=== PATIENT | male | born 1950 | race Caucasian/White ===

== ENCOUNTER 2018-03-26 07:19 | Outpatient (CLI) | payer MEDICARE, SELFPAY ==
[2018-03-26 07:42] LABS: HCT 42.2 % (40.0-50.0); HGB 14.9 g/dL (13.5-17.5); Mean Corp. HGB Concentration 35.3 g/dL (32.0-36.0); Mean Corpuscular Hemoglobin 29.7 pg (27.0-33.0); Mean Corpuscular Volume 84.2 fL (80-95); Mean Platelet Volume 10.6 fL (8.0-11.0); Platelet Count 260 x1000/uL (130-400); RBC 5.01 m/cumm (4.50-6.00); White Blood Cell Count 7.73 k/cumm (4.4-10.8)
[2018-03-26 08:51] LABS: ALT 37 U/L (12-78); AST 25 U/L (15-37); Albumin 3.8 g/dL (3.4-5.0); Alkaline Phosphatase 64 U/L (46-116); Anion Gap 5.8 mmol/L (3-11); BUN 23 mg/dL (7-18); Bilirubin, Total 0.8 mg/dL (0.2-1.0); CO2 30.2 mmol/L (21.0-32.0); CREATININE 1.17 mg/dL (0.70-1.30); Calcium 9.1 mg/dL (8.5-10.1); Chloride 103 mmol/L (98-107); Cholesterol 286 mg/dL (50-200); Glucose 95 mg/dL (70-100); HDL Cholesterol 55 mg/dL (40-60); LDL CHOLESTEROL 197 mg/dL (<100); Potassium 4.6 mmol/L (3.5-5.1); Sodium 139 mmol/L (136-145); Total Protein 7.1 g/dL (6.4-8.2); Triglyceride 159 mg/dL (30-150)
== END 2018-03-26 07:39 ==
PROVIDERS: PCP Nurse Practitioner; Visit Provider Nurse Practitioner
DX: G43.909 Migraine, unspecified, not intractable, without status migrainosus (principal); E78.2 Mixed hyperlipidemia
CPT/HCPCS: 36415; 80053; 80061; 83721; 85027

== ENCOUNTER 2019-12-31 01:14 | Outpatient (CLI) | payer MEDICARE, BC, SELFPAY ==
[2019-12-31 07:56] LABS: HCT 41.1 % (40.0-50.0); HGB 14.4 g/dL (13.5-17.5); Mean Corpuscular Hemoglobin 29.1 pg (27.0-33.0); Mean Corpuscular Volume 83.2 fL (80-95); Mean Platelet Volume 10.4 fL (8.0-11.0); Platelet Count 302 x1000/uL (130-400); RBC 4.94 m/cumm (4.50-6.00); RBC Distribution Width 14.5 % (11.8-14.1); White Blood Cell Count 7.16 k/cumm (4.4-10.8)
[2019-12-31 09:02] LABS: ALT 34 U/L (16-63); AST 21 U/L (15-37); Albumin 3.7 g/dL (3.4-5.0); Alkaline Phosphatase 58 U/L (46-116); Anion Gap 7.2 mmol/L (3-11); BUN 18 mg/dL (7-18); Bilirubin, Total 1.1 mg/dL (0.2-1.0); CO2 26.8 mmol/L (21.0-32.0); CREATININE 1.01 mg/dL (0.70-1.30); Calcium 9.1 mg/dL (8.5-10.1); Calculated LDL 172 mg/dL (<100); Chloride 105 mmol/L (98-107); Cholesterol 248 mg/dL (<200); Glucose 94 mg/dL (74-106); HDL Cholesterol 48 mg/dL (40-60); Potassium 4.4 mmol/L (3.5-5.1); Sodium 139 mmol/L (136-145); Triglyceride 140 mg/dL (<150)
[2020-01-01 09:11] LABS: PSA, Screening 5.6 ng/mL (0.0-4.5)
== END 2019-12-31 01:34 ==
PROVIDERS: PCP Nurse Practitioner; Visit Provider Nurse Practitioner
DX: E78.2 Mixed hyperlipidemia (principal); R39.11 Hesitancy of micturition; R39.15 Urgency of urination; Z51.81 Encounter for therapeutic drug level monitoring; Z79.01 Long term (current) use of anticoagulants; N52.9 Male erectile dysfunction, unspecified; Z12.5 Encounter for screening for malignant neoplasm of prostate
CPT/HCPCS: 36415; 80053; 80061; 84153; 85027

== ENCOUNTER → 2020-03-02 14:33 | Outpatient (BNVA) | payer MEDICARE, BC, SELFPAY | PROVIDERS: PCP Nurse Practitioner; Referring Provider Nurse Practitioner; Visit Provider Urology | DX: R39.12 Poor urinary stream (principal); R39.15 Urgency of urination; R39.11 Hesitancy of micturition; R97.20 Elevated prostate specific antigen [PSA]; Z80.42 Family history of malignant neoplasm of prostate | CPT/HCPCS: 99203 ==

== ENCOUNTER 2020-03-02 16:25 | Outpatient (REF) | payer MEDICARE, BC, SELFPAY ==
[2020-03-05 11:04] LABS: Free PSA/PSA Ratio 0.13 ratio
== END 2020-03-02 16:45 ==
LOC: LBN 16:25
PROVIDERS: PCP Nurse Practitioner; Visit Provider Urology
DX: R97.20 Elevated prostate specific antigen [PSA] (principal)
CPT/HCPCS: 84154

== ENCOUNTER → 2020-05-21 13:03 | Outpatient (BNVA) | payer MEDICARE, BC, SELFPAY | PROVIDERS: PCP Nurse Practitioner; Referring Provider Nurse Practitioner; Visit Provider Urology | DX: R97.20 Elevated prostate specific antigen [PSA] (principal); N52.9 Male erectile dysfunction, unspecified; R39.12 Poor urinary stream | CPT/HCPCS: 99213 ==

== ENCOUNTER 2020-06-04 09:19 | Outpatient (CLI) | payer MEDICARE, BC, SELFPAY ==
[2020-06-07 17:08] LABS: COVID-19 RT-PCR Result NEGATIVE (Negative)
== END 2020-06-04 09:39 ==
PROVIDERS: PCP Nurse Practitioner; Visit Provider Nurse Practitioner
DX: Z20.828 Contact with and (suspected) exposure to other viral communicable diseases (principal)
CPT/HCPCS: U0003

== ENCOUNTER 2020-10-06 03:28 | Outpatient (CLI) | payer MEDICARE, BC, SELFPAY ==
[2020-10-06 13:21] LABS: ALT 38 U/L (16-63); AST 17 U/L (15-37); Albumin 3.7 g/dL (3.4-5.0); Alkaline Phosphatase 53 U/L (46-116); Anion Gap 7.1 mmol/L (3-11); BUN 24 mg/dL (7-18); CO2 29.9 mmol/L (21.0-32.0); Calcium 9.3 mg/dL (8.5-10.1); Calculated LDL 151 mg/dL (<100); Chloride 105 mmol/L (98-107); Cholesterol 249 mg/dL (<200); Glucose 116 mg/dL (74-106); HDL Cholesterol 62 mg/dL (40-60); Potassium 4.1 mmol/L (3.5-5.1); Sodium 142 mmol/L (136-145); Total Protein 7.7 g/dL (6.4-8.2); Triglyceride 181 mg/dL (<150)
[2020-10-07 12:18] LABS: Free PSA/PSA Ratio 0.16 ratio
== END 2020-10-06 03:29 | disposition home or self-care (01) ==
LOC: LBO 03:28
PROVIDERS: PCP Nurse Practitioner; Visit Provider Urology
DX: E78.2 Mixed hyperlipidemia (principal); R97.20 Elevated prostate specific antigen [PSA]; N52.9 Male erectile dysfunction, unspecified
CPT/HCPCS: 36415; 80053; 80061; 84154

== ENCOUNTER → 2020-10-12 13:27 | Outpatient (BNVA) | payer MEDICARE, BC, SELFPAY | PROVIDERS: PCP Nurse Practitioner; Referring Provider Nurse Practitioner; Visit Provider Nurse Practitioner Gerontology | DX: R39.89 Other symptoms and signs involving the genitourinary system (principal); R97.20 Elevated prostate specific antigen [PSA] | CPT/HCPCS: 99213 ==

== ENCOUNTER 2020-10-15 02:57 | Outpatient (CLI) | payer MEDICARE, BC, SELFPAY ==
--- NOTE | 2020-10-15 | DI.MRI_ITS ---
Exam(s) MR CERVICAL SPINE WO EXAM: MR CERVICAL SPINE WO CLINICAL HISTORY: LT SHOULDER PAIN,M25.512,DECREASED RANGE OF MOTION TECHNIQUE: Multiplanar multisequence MRI of the cervical spine was performed without intravenous con trast. COMPARISON: No exams were available for comparison FINDINGS: BONES: Vertebral body heights are maintained. Intervertebral disc spaces are normal. Alignment is nor mal. Apart from the degenerative endplate signal changes, marrow signal is within normal limits. CERVICAL CORD: Craniovertebral junction is unremarkable. The cervical cord is normal size and signal intensity. SOFT TISSUES: Unremarkable. C2-3: No disc herniation or bulge is identified. No significant central spinal canal or neural forami nal stenosis. C3-4: No disc herniation or bulge is identified. No significant central spinal canal or neural forami nal stenosis C4-5: Hypertrophic changes of the left uncovertebral joint cause moderate left neural foraminal steno sis. No significant central spinal canal stenosis is seen no significant right neural foraminal sten osis is present. C5-6: There is prominence of the osteophyte disc complex mildly narrowing the AP diameter of the cent ral spinal canal. Degenerative changes of the right uncovertebral joint are present which causes mod erate to severe right neural foraminal stenosis. No significant left neural foraminal stenosis. C6-7: No disc herniation or bulge is identified. Degenerative changes of the right uncovertebral join t causing [id number] right neural foraminal stenosis. No significant central spinal canal or l eft neural foraminal stenosis. C7-T1: No disc herniation or bulge is identified. No significant central spinal canal or neural kvng inal stenosis IMPRESSION: Multilevel degenerative changes in the cervical spine resulting in central spinal canal and neural fo raminal stenosis as described above. DATA REPOSITORY:
== END 2020-10-15 03:17 ==
PROVIDERS: PCP Nurse Practitioner; Visit Provider Preventive Medicine Sports Medicine
DX: M25.512 Pain in left shoulder (principal); M54.2 Cervicalgia; M50.322 Other cervical disc degeneration at C5-C6 level; M50.323 Other cervical disc degeneration at C6-C7 level
CPT/HCPCS: 72141

== ENCOUNTER 2021-04-05 02:37 | Outpatient (CLI) | payer MEDICARE, BC, SELFPAY ==
[2021-04-05 17:57] LABS: PSA, Diagnostic 6.3 ng/mL (0.0-4.5)
== END 2021-04-05 02:38 | disposition home or self-care (01) ==
LOC: LBO 02:37
PROVIDERS: PCP Nurse Practitioner; Visit Provider Nurse Practitioner Gerontology
DX: R97.20 Elevated prostate specific antigen [PSA] (principal)
CPT/HCPCS: 36415; 84153

== ENCOUNTER 2021-04-12 00:51 | Outpatient (CLI) | payer MEDICARE, BC, SELFPAY ==
[2021-04-12 10:07] LABS: BUN 16 mg/dL (7-18)
[2021-04-12] MEDS: Normal Saline Flush 10 ML SYR IVP (10:57)
[2021-04-12] MEDS: Gadoterate meglumine 20 ML VIAL 13 ML IVP (10:58)
--- NOTE | 2021-04-12 11:15 | DI.MRI_ITS ---
Exam(s) MR IAC BRAIN WO/W EXAM: MR IAC BRAIN WO/W CLINICAL HISTORY: SUDDEN RT HEARING LOSS,H91.21,H93.291,IMPAIRMENT RT AUDITORY,H90.A22,SN. TECHNIQUE: Multiplanar multisequence MRI of the brain and internal auditory canals was performed. CONTRAST MATERIAL: IV Contrast: 13 mL of Magnevist contrast administered. COMPARISON: No exams were available for comparison FINDINGS: VENTRICLES AND EXTRA AXIAL SPACES: Normal in size and morphology for the patient's age. HEMORRHAGE: None. CEREBRAL PARENCHYMA: No focus of restricted diffusion to suggest acute infarct. No space-occupying le corinne identified. MIDLINE SHIFT: None. BRAINSTEM/CEREBELLUM: Normal. ENHANCEMENT: No suspicious enhancement identified. VISUALIZED PARANASAL SINUSES/MASTOIDS: Clear. Orbits: Unremarkable. IAC/CP ANGLE: The internal auditory canals are within normal limits. The cerebellar pontine angles ar e unremarkable. No enhancing lesions are seen. Visualized portions of the 7th and 8th cranial nerves appear within normal limits. IMPRESSION: Unremarkable MRI of the brain and internal auditory canals. DATA REPOSITORY:
== END 2021-04-12 01:11 ==
PROVIDERS: PCP Nurse Practitioner; Visit Provider Otolaryngology Otolaryngology/Facial Plastic Surgery
DX: H90.A22 Sensorineural hearing loss, unilateral, left ear, with restricted hearing on the contralateral side (principal); H93.291 Other abnormal auditory perceptions, right ear; H91.21 Sudden idiopathic hearing loss, right ear; R39.89 Other symptoms and signs involving the genitourinary system; Z71.2 Person consulting for explanation of examination or test findings; R97.20 Elevated prostate specific antigen [PSA]
CPT/HCPCS: 70553; 84520; 99213; 82565

== ENCOUNTER → 2022-02-28 14:17 | Outpatient (BNVA) | payer MEDICARE, BC, SELFPAY | PROVIDERS: PCP Nurse Practitioner; Referring Provider Nurse Practitioner; Visit Provider Urology | DX: N40.1 Benign prostatic hyperplasia with lower urinary tract symptoms (principal); R39.15 Urgency of urination; R97.20 Elevated prostate specific antigen [PSA]; R39.12 Poor urinary stream | CPT/HCPCS: 99214 ==

== ENCOUNTER 2022-03-08 03:30 | Outpatient (CLI) | payer MEDICARE, BC, SELFPAY ==
[2022-03-08 08:38] LABS: Prothrombin Time 28.1 sec (9.3-11.0)
[2022-03-08 09:00] LABS: ALT 31 U/L (16-63); AST 19 U/L (15-37); Albumin 3.6 g/dL (3.4-5.0); Alkaline Phosphatase 65 U/L (46-116); Anion Gap 6.1 mmol/L (3-11); BUN 20 mg/dL (7-18); Bilirubin, Total 0.8 mg/dL (0.2-1.0); CO2 29.9 mmol/L (21.0-32.0); Calcium 9.1 mg/dL (8.5-10.1); Calculated LDL 136 mg/dL (<100); Chloride 105 mmol/L (98-107); Cholesterol 203 mg/dL (<200); Estimated GFR 81.47 (mL/min/1.73m2); Glucose 100 mg/dL (74-106); HDL Cholesterol 47 mg/dL (40-60); Potassium 4.4 mmol/L (3.5-5.1); Sodium 141 mmol/L (136-145); Total Protein 7.6 g/dL (6.4-8.2); Triglyceride 102 mg/dL (<150)
[2022-03-08 18:18] LABS: PSA, Screening 5.3 ng/mL (<=4.5)
== END 2022-03-08 03:31 | disposition home or self-care (01) ==
LOC: LBO 03:31
PROVIDERS: PCP Nurse Practitioner; Visit Provider Nurse Practitioner
DX: E78.2 Mixed hyperlipidemia (principal); N52.9 Male erectile dysfunction, unspecified; R97.20 Elevated prostate specific antigen [PSA]; Z12.5 Encounter for screening for malignant neoplasm of prostate; Z95.4 Presence of other heart-valve replacement; Z79.01 Long term (current) use of anticoagulants
CPT/HCPCS: 36415; 80053; 80061; 84153; 85610

== ENCOUNTER 2022-03-30 15:50 | Outpatient (REF) | payer MEDICARE, BC, SELFPAY ==
[2022-04-01 12:39] LABS: COVID-19 RT-PCR UVMMC Result Negative (Negative)
== END 2022-03-30 15:51 | disposition home or self-care (01) ==
LOC: LBN 15:50
PROVIDERS: PCP Nurse Practitioner; Visit Provider Nurse Practitioner
DX: Z01.818 Encounter for other preprocedural examination (principal); Z20.822 Contact with and (suspected) exposure to COVID-19
CPT/HCPCS: U0003

== ENCOUNTER 2022-09-07 16:08 | Outpatient (REF) | payer MEDICARE, BC, SELFPAY ==
[2022-09-09 02:08] LABS: COVID-19 RT-PCR UVMMC Result Negative (Negative)
== END 2022-09-07 16:09 | disposition home or self-care (01) ==
LOC: LBN 16:08
PROVIDERS: PCP Nurse Practitioner; Visit Provider Nurse Practitioner
DX: Z20.822 Contact with and (suspected) exposure to COVID-19 (principal)
CPT/HCPCS: U0003

== ENCOUNTER 2022-10-13 00:17 | Outpatient (CLI) | payer MEDICARE, BC, SELFPAY ==
--- OUTSIDE RECORDS SUMMARY | 2022-10-13 00:23 | XMS_ITS ---
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 Active 55367742 Problem Sensorineural hearing loss (SNHL) of left ear with restricted hearing of right ear H90.A22 Active Problem Sensorineural hearing loss (SNHL) of right ear with restricted hearing of left ear H90.A21 Active ALLERGIES No Known Allergies ENCOUNTERS Encounter Location Date Diagnosis [facility] Audiology [address] [place] [address] [place] [id number] Sep, Sensorineural hearing loss (SNHL) of right ear with restricted hearing of left ear H90.A21 ; Sensorineural hearing loss (SNHL) of left ear with restricted hearing of right ear H90.A22 ; Sudden right hearing loss H91.21 and 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 H93.291 [facility] Audiology [address] [place] [address] [place] [id number] May, Sudden right hearing loss H91.21 ; Sensorineural hearing loss (SNHL) of right ear with restricted hearing of left ear H90.A21 ; Sensorineural hearing loss (SNHL) of left ear with restricted hearing of right ear H90.A22 and 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 H93.291 [facility] Audiology [address] [place], [place] [id number] Apr, Sensorineural hearing loss (SNHL) of left ear with restricted hearing of right ear H90.A22 ; Sensorineural hearing loss (SNHL) of right ear with restricted hearing of left ear H90.A21 and 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 H93.291 [facility] Audiology [address] [place], [place] [id number] Apr, 2021 Sensorineural hearing loss (SNHL) of left ear with restricted hearing of right ear H90.A22 ; 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 H93.291 and Sudden right hearing loss H91.21 [facility] Audiology [address] [place] [address] [address] [place], [place] [id number] Mar, [facility] Audiology [address] [place] [address] [address] [place], [place] [id number] Mar, Sudden right hearing loss H91.21 ; Sensorineural hearing loss (SNHL) of left ear with restricted hearing of right ear H90.A22 and 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 H93.291 [facility] [address] [place] [address] [address] [place], [place] [id number] Mar, [facility] [address] [place] [phone] Mar, 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 H93.291 [facility] [address] [place], [place] [id number] Mar, Sensorineural hearing loss (SNHL) of left ear with restricted hearing of right ear H90.A22 ; 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 H93.291 and Sudden right hearing loss H91.21 [facility] [address] [place], [place] [id number] Feb, Sudden right hearing loss H91.21 ; Sensorineural hearing loss (SNHL) of left ear with restricted hearing of right ear H90.A22 and 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 H93.291 [facility] Joshua Peñaloza [address], [address] [place] [id number] 16 Feb, 2021 IMMUNIZATIONS No Known Immunizations SOCIAL HISTORY Qualifiers Date Former Smoker REASON FOR REFERRAL FUNCTIONAL STATUS PLAN OF CARE VITAL SIGNS Height 5 ft 6 in in 2021-03-18 Height 5 ft 6 in in 2021-03-04 Weight 150 lbs 2021-03-18 Weight 148 lbs 2021-03-04 BMI 24.21 kg/m2 2021-03-18 BMI 23.89 kg/m2 2021-03-04 Blood pressure systolic 124 mm Hg Blood pressure diastolic 72 mm Hg 2021-03 MEDICATIONS Medication Instructions Dosage Frequency Start Date End Date Duration Status Tadalafil 5 MG Orally Once a day 1 tablet as needed 24h 30 day(s) Active Warfarin Sodium 2.5 MG Orally Once a day 1 tablet 24h 30 day(s) Active predniSONE 10 MG Orally Once a day 1 tablet 24h 30 day(s) Active Sildenafil Citrate 100 MG Orally Once a day 1/2 tablet 24h Not-Taki ng Atorvastatin Calcium 40 MG Orally Once a day 1 tablet 24h 30 day(s) Active Hydrocortisone (Perianal) 2.5 % Externally Twice a day 1 application 12h Active Amoxicillin 500 MG Orally as directed 4 tablets Not-Taki ng Celecoxib 200 MG Orally Twice a day 1 capsule with food 12h Not-Taki ng PROCEDURES Procedure Date Ordered Result Body Site EAR MOLD IMPRESSION Apr 20, 2021 BTE/BTE CROS BINAURAL Apr 20, 2021 EAR MOLD INSERT NOT DISP ANY TYPE Apr 20, 2021 DISPENSING FEE BICROS Apr 20, 2021 CONFORMITY EVALUATION Apr 20, 2021 JACOBS PROGRAMMING (CHECKING OF JACOBS) Apr 20, 2021 Assessment for hearing aid Apr 20, 2021 RESULTS Name Result Date Reference Range CREATININE - SERUM CREATININE eGFR Calculated Value COMMENT BUN BLOOD UREA NITROGEN REASON FOR VISIT AUD AUDIOGRAM, AUD FEELS HEARING HAS CHANGED-LAST AUDIO 03/2021 [facility], SEE CHART, AUD 4WK F/U, AUD 2WK F/U, AUD JACOBS FITTING, AUD JACOBS order-SCHEDULE FOR FIT, AUD JACOBS CONSULT, Try 2nd course of steroids?, MRI - need to order Creatinine , ENT 2 week (Reason: SNHL, post steroids, HT, MRI needed), PFP Est Patient (L), ENT HEARING LOSS, PFP, New Patient, CHART PRELOAD Insurance Providers Health Insurance Type Health Plan Insurance Address Health Plan Insurance Phone Health Plan Insurance Name Health Plan Coverage Dates Member ID Patient Relationship to Subscriber Patient Address Patient Phone Patient Name Patient Date of Subscriber ID Subscriber Name Subscriber Date of Group No [place] [address] [facility] [id number] [place] self Ramez Donnelly [id number] MEDICARE [address] [facility] [address] MEDICARE self Ramez Donnelly [id number]
--- NOTE | 2022-10-13 06:15 | DI.US_ITS ---
Exam(s) US AAA SCREENING EXAM: US AAA SCREENING CLINICAL HISTORY: SCREENING FOR AAA,Z13.6 COMPARISON: No exams were available for comparison FINDINGS: Abdominal Aorta: Proximal: 2.3 cm Mid: 2.0 cm Distal: 1.8 cm Iliacs: Right: 0.9 cm Left: 1 cm IMPRESSION: No evidence of abdominal aortic aneurysm. DATA REPOSITORY:
== END 2022-10-13 00:37 ==
LOC: DI 00:17
PROVIDERS: PCP Nurse Practitioner; Visit Provider Nurse Practitioner
DX: Z13.6 Encounter for screening for cardiovascular disorders (principal)
CPT/HCPCS: 76706

== ENCOUNTER 2023-03-02 01:44 | Outpatient (CLI) | payer MEDICARE, BC, SELFPAY ==
[2023-03-02 12:21] LABS: Abs Immature Grans 0.02 10^3/uL (0.0-0.06); Absolute Basophil Count 0.06 10^3/uL (0.0-0.2); Absolute Eosinophil Count 0.38 10^3/uL (0.0-0.7); Absolute Lymphocyte Count 2.15 10^3/uL (1.2-3.4); Absolute Neutrophil Count 3.25 10^3/uL (1.2-6.7); Basophils % 0.9; Eosinophils % 5.7; HCT 40.9 % (40.0-50.0); HGB 14.1 g/dL (13.5-17.5); Immature Grans % 0.3; Lymphocytes % 32.3; MCH 29.3 pg (27.0-33.0); MCHC 34.5 % (32.0-36.0); MCV 85 fL (80-95); Neutrophils % 48.8; Platelet Count 311 10^3/uL (130-400); RBC 4.82 10^6/uL (4.36-5.78); RDW 14.3 % (11.8-14.1); RDW-SD 43.8 fL; WBC 6.66 10^3/uL (4.4-10.8)
[2023-03-02 12:31] LABS: ALT 26 U/L (16-63); AST 18 U/L (15-37); Albumin 3.5 g/dL (3.4-5.0); Alkaline Phosphatase 65 U/L (46-116); Anion Gap 5.5 mmol/L (3-11); BUN 25 mg/dL (7-18); Bilirubin, Total 0.8 mg/dL (0.2-1.0); CO2 28.5 mmol/L (21.0-32.0); Calcium 9.4 mg/dL (8.5-10.1); Calculated LDL 153 mg/dL (<100); Chloride 105 mmol/L (98-107); Cholesterol 223 mg/dL (<200); Estimated GFR 80.97 (mL/min/1.73m2); Glucose 92 mg/dL (74-106); HDL Cholesterol 52 mg/dL (40-60); Potassium 4.3 mmol/L (3.5-5.1); Sodium 139 mmol/L (136-145); Total Protein 7.2 g/dL (6.4-8.2); Triglyceride 92 mg/dL (<150)
[2023-03-02 15:57] LABS: INR 2.1 (0.9-1.1); Prothrombin Time 21.5 sec (9.3-11.0)
[2023-03-02 20:31] LABS: PSA, Screening 7.9 ng/mL (<=6.5)
[2023-03-05 11:24] LABS: Hepatitis C Ab w Rflx HCV PCR Negative (Negative)
== END 2023-03-02 01:45 | disposition home or self-care (01) ==
LOC: LOS 01:45
PROVIDERS: PCP Nurse Practitioner; Visit Provider Nurse Practitioner
DX: E78.2 Mixed hyperlipidemia (principal); R97.20 Elevated prostate specific antigen [PSA]; Z13.6 Encounter for screening for cardiovascular disorders; Z79.01 Long term (current) use of anticoagulants; Z95.4 Presence of other heart-valve replacement; Z12.5 Encounter for screening for malignant neoplasm of prostate
CPT/HCPCS: 36415; 80053; 80061; 84153; 86803; 85025; 85610

== ENCOUNTER → 2023-03-16 14:20 | Outpatient (BNVA) | payer MEDICARE, BC, SELFPAY | PROVIDERS: PCP Nurse Practitioner; Referring Provider Nurse Practitioner; Visit Provider Urology | DX: R97.20 Elevated prostate specific antigen [PSA] (principal); R39.12 Poor urinary stream; R39.15 Urgency of urination; R39.11 Hesitancy of micturition | CPT/HCPCS: 99214 ==

== ENCOUNTER → 2024-04-15 07:52 | Outpatient (BNVA) | payer MEDICARE, BC, SELFPAY | PROVIDERS: PCP Nurse Practitioner; Visit Provider Urology | DX: N40.1 Benign prostatic hyperplasia with lower urinary tract symptoms (principal); R35.0 Frequency of micturition; R39.15 Urgency of urination; R39.12 Poor urinary stream; N52.9 Male erectile dysfunction, unspecified; R97.20 Elevated prostate specific antigen [PSA] | CPT/HCPCS: 51798; 99214 ==

== ENCOUNTER 2024-05-13 02:36 | Outpatient (CLI) | payer MEDICARE, BC, SELFPAY ==
[2024-05-13 08:14] LABS: INR 1.9 (0.9-1.1); Prothrombin Time 17.7 sec (9.1-11.1)
[2024-05-13 08:22] LABS: ALT 32 U/L (16-63); AST 22 U/L (15-37); Albumin 3.6 g/dL (3.4-5.0); Alkaline Phosphatase 61 U/L (46-116); Anion Gap 5.2 mmol/L (3-11); BUN 21 mg/dL (7-18); Bilirubin, Total 0.96 mg/dL (0.2-1.0); CO2 28.8 mmol/L (21.0-32.0); CREATININE 1.2 mg/dL (0.70-1.30); Calcium 9.4 mg/dL (8.5-10.1); Chloride 104 mmol/L (98-107); Estimated GFR 64.65 (mL/min/1.73m2); Glucose 103 mg/dL (74-106); Potassium 4.3 mmol/L (3.5-5.1); Sodium 138 mmol/L (136-145); Total Protein 7.5 g/dL (6.4-8.2)
[2024-05-13 08:25] LABS: Calculated LDL 143 mg/dL (<100); Cholesterol 226 mg/dL (<200); HDL Cholesterol 59 mg/dL (40-60); Triglyceride 124 mg/dL (<150)
[2024-05-13 17:56] LABS: PSA, Diagnostic 6.6 ng/mL (<=6.5)
== END 2024-05-13 02:37 | disposition home or self-care (01) ==
LOC: LBO 02:37
PROVIDERS: Nurse Practitioner Adult Health; PCP Nurse Practitioner; Visit Provider Urology
DX: R97.20 Elevated prostate specific antigen [PSA] (principal); Z79.01 Long term (current) use of anticoagulants; Z95.4 Presence of other heart-valve replacement; E78.5 Hyperlipidemia, unspecified
CPT/HCPCS: 36415; 80053; 80061; 83735; 84153; 85610

== ENCOUNTER 2025-04-10 18:54 | Outpatient (CLI) | payer MEDICARE, SELFPAY ==
[2025-04-13 09:58] LABS: PSA, Diagnostic 6.6 ng/mL (<=6.5)
== END 2025-04-10 18:55 | disposition home or self-care (01) ==
LOC: LBO 18:55
PROVIDERS: Urology; PCP Nurse Practitioner; Visit Provider Nurse Practitioner Gerontology
DX: R97.20 Elevated prostate specific antigen [PSA] (principal)
CPT/HCPCS: 36415; 84153

== ENCOUNTER → 2025-04-14 09:51 | Outpatient (BNVA) | payer MEDICARE, SELFPAY | PROVIDERS: PCP Nurse Practitioner; Referring Provider Nurse Practitioner; Visit Provider Urology | DX: R35.0 Frequency of micturition (principal); R39.15 Urgency of urination; R97.20 Elevated prostate specific antigen [PSA] | CPT/HCPCS: 99214 ==